=== PATIENT | female | born 1970 | race Caucasian/White ===

== ENCOUNTER 2018-06-30 10:06 | Emergency (ER) | payer OTHER ==
[2018-06-30 10:07] VITALS: BMI 21.2
[2018-06-30 10:53] VITALS: RESP 20; O2SAT 100
[2018-06-30 12:10] LABS: HCG,QUALITATIVE URINE NEGATIVE (NEGATIVE)
[2018-06-30 12:18] LABS: URINE BILIRUBIN NEGATIVE (NEGATIVE); URINE BLOOD 1+ (NEGATIVE); URINE CLARITY Clear (Clear); URINE COLOR Yellow (YELLOW); URINE GLUCOSE (UA) NORMAL (Normal); URINE LEUKOCYTE ESTERASE NEG Leu/uL (Negative); URINE PROTEIN NEGATIVE (NEGATIVE); URINE UROBILINOGEN NORMAL mg/dL (0.2-1.0)
[2018-06-30] MEDS ORDERED: Dexamethasone 4 mg/1 ml IM STA (12:34)
--- NOTE | 2018-06-30 13:00 | C.PDOC ---
History Of Present Illness 48 year old female presents to the emergency department with complaints of lower back pain status-post "feeling a pull" in her back while lifting an object at work last week. Patient is employed at [employer] in [employer]. Patient states that she was trying to deal with the pain, but last Friday she went to the bathroom and felt a "tear" while sitting on the toilet. She states that she called out for her daughter but collapsed on the bathroom floor from the pain and passed out. Patient states that she was brought to the ED via ambulance that day but refused treatment. Patient states that the pain has worsened over the weekend, and today she decided to come to the ED. patient reports a history of back injury 5 years ago where an MRI was done and she was diagnosed with spinal stenosis. Time Seen by Provider: 06/30/18 10:56 Chief Complaint (Nursing): Back Pain History Per: Patient History/Exam Limitations: no limitations Onset/Duration Of Symptoms: Hrs, Worse Since (Weekend) Current Symptoms Are (Timing): Worse Quality Of Discomfort: "Pain" Previous Symptoms: Back Pain (5 years ago) Associated Symptoms: None Past Medical History Reviewed: Historical Data, Nursing Documentation, Vital Signs Vital Signs: Last Vital Signs Temp 98.4 F 06/30/18 10:15 Pulse 73 06/30/18 10:15 Resp 20 06/30/18 10:15 BP 115/82 06/30/18 10:15 Pulse Ox 100 06/30/18 10:15 Primary Care Provider: Celeste Malave - Medical History PMH: No Chronic Diseases Surgical History: No Surg Hx Denies: Pacemaker - [facility] Procedures BREAST DX PROCEDURE NEC (10/10/14) DX ULTRASOUND-THORAX NEC (10/10/14) LOCAL EXCIS BREAST LES (03/05/01) OTHER LOCAL DESTRUC SKIN (03/27/05) SUBTOTAL MASTECTOMY (10/10/14) VACUUM EXT DEL W EPISIOT (12/31/99) Family History: States: No Known Family Hx - Social History Hx Tobacco Use: No Hx Alcohol Use: No Hx Substance Use: No - Immunization History Hx Tetanus Toxoid Vaccination: Yes Hx Influenza Vaccination: Yes Hx Pneumococcal Vaccination: Yes Review Of Systems Except As Marked, All Systems Reviewed And Found Negative. Constitutional: Negative for: Fever, Chills Cardiovascular: Negative for: Chest Pain Respiratory: Negative for: Cough, Shortness of Breath Gastrointestinal: Negative for: Nausea, Vomiting, Abdominal Pain, Diarrhea Genitourinary: Negative for: Dysuria, Frequency, Incontinence Musculoskeletal: Positive for: Back Pain Neurological: Negative for: Weakness, Numbness Physical Exam - Physical Exam Appears: Non-toxic, No Acute Distress Skin: Normal Color, Warm, Dry, No Rash Head: Atraumatic, Normacephalic Eye(s): bilateral: Normal Inspection, PERRL, EOMI Nose: Normal Oral Mucosa: Moist Throat: No Erythema, No Exudate Neck: Normal ROM, Supple Chest: Symmetrical, No Tenderness Cardiovascular: Rhythm Regular, No Murmur Respiratory: Normal Breath Sounds, No Rales, No Rhonchi, No Wheezing Gastrointestinal/Abdominal: Soft, No Tenderness, No Guarding, No Rebound Back: No CVA Tenderness, Vertebral Tenderness (midline lumbar tenderness), No Paraspinal Tenderness Extremity: Normal ROM, No Tenderness, No Swelling Neurological/Psych: Oriented x3, Normal Speech, Normal Cognition, Normal Motor Gait: Steady (ambulatory) ED Course And Treatment - Laboratory Results Lab Results: Urine Color Yellow (YELLOW) 06/30/18 12:03 Urine Clarity Clear (Clear) 06/30/18 12:03 Urine pH 5.0 (5.0-8.0) 06/30/18 12:03 Ur Specific Pollock 1.014 (1.003-1.030) 06/30/18 12:03 Urine Protein Negative mg/dL (NEGATIVE) 06/30/18 12:03 Urine Glucose (UA) Normal mg/dL (Normal) 06/30/18 12:03 Urine Ketones Negative mg/dL (NEGATIVE) 06/30/18 12:03 Urine Blood 1+ (NEGATIVE) H 06/30/18 12:03 Urine Nitrate Negative (NEGATIVE) 06/30/18 12:03 Urine Bilirubin Negative (NEGATIVE) 06/30/18 12:03 Urine Urobilinogen Normal mg/dL (0.2-1.0) 06/30/18 12:03 Ur Leukocyte Esterase Neg Princess/uL (Negative) 06/30/18 12:03 Urine WBC (Auto) 1 /hpf (0-5) 06/30/18 12:03 Urine RBC (Auto) 3 /hpf (0-3) 06/30/18 12:03 Urine HCG, Qual Negative (NEGATIVE) 06/30/18 12:03 Urine HCG, Qual Negative (NEGATIVE) 06/30/18 12:03 O2 Sat by Pulse Oximetry: 100 (RA) Pulse Ox Interpretation: Normal - Other Rad XR L-Spine X-Ray: Viewed By Me, Read By Radiologist Interpretation: IMPRESSION: No acute displaced fracture or subluxation identified. Medical Decision Making Medical Decision Making: Plan: Decadron 10mg IM Flexeril 10mg PO Toradol 30mg IM HCG Qualitative Urine Urinalysis On re-exam, the patient reports improvement of symptoms. Lungs are CTA, heart is RRR, abdomen is soft, non-tender and tolerating PO well. Pt is ambulatory in the ED with steady gait. Follow up with the medical doctor/clinic within 1-2 days. Return if worsened. Disposition - Disposition Referrals: Nico Camp MD [Non-Staff] - Disposition: HOME/ ROUTINE Disposition Time: 13:50 Condition: GOOD Additional Instructions: Follow up with the medical doctor/clinic within 1-2 days. Return if worsened. Prescriptions: Cyclobenzaprine [Flexeril] 5 mg PO TID #21 tab Naproxen [Naprosyn] 500 mg PO BID #20 tab Instructions: Low Back Pain in Adults Forms: [facility] (Honduran), Work Excuse - Clinical Impression Clinical Impression: Low back pain - PA / [employer] CLE[employer]ER / Resident Statement MD/DO has reviewed & agrees with the documentation as recorded. - Scribe Statement The provider has reviewed the documentation as recorded by the Scribe (Lalo Aguayo) All medical record entries made by the Scribe were at my direction and personally dictated by me. I have reviewed the chart and agree that the record accurately reflects my personal performance of the history, physical exam, medical decision making, and the department course for this patient. I have also personally directed, reviewed, and agree with the discharge instructions and disposition.
--- NOTE | 2018-06-30 13:22 | RAD ---
Date of service: 06/30/2018 PROCEDURE: Radiographs of the Lumbar Spine. Three views HISTORY: low back pain COMPARISON: Lumbar spine radiographs performed 09/17/12 FINDINGS: BONES: Alignment appears satisfactory. No listhesis. No acute displaced fracture identified. DISC SPACES: Unremarkable. OTHER FINDINGS: None. IMPRESSION: No acute displaced fracture or subluxation identified.
[2018-06-30 14:25] VITALS: BP 114/77; PULSE 69; TEMP 97.9
== END 2018-06-30 14:24 | disposition home or self-care (01) ==
LOC: C.ER 10:06
DX: M54.5 Low back pain (principal)
CPT/HCPCS: 72100; 81001; 84703; 96372; 99284; J1100; J1885